=== PATIENT | female | born 1995 | race Caucasian/White ===

== ENCOUNTER 2016-10-22 05:17 | Inpatient (IN) | payer MEDICAID ==
[~2016-10-22] VITALS: Ht 154.9 cm; Wt 74.4 kg
[2016-10-22 05:17] VITALS: BP_SYST 122
[2016-10-22] MEDS ORDERED: NACL 0.9% 1,000 ML IV ONE ×2 (05:26→09:15)
[2016-10-22] MEDS ORDERED: FOLIC ACID 1 MG, THIAMINE HCL 100 MG, MAGNESIUM SULFATE 1 GM, MVI 10 ML in NACL 0.9% 1,... IV ONE (05:30)
[2016-10-22 05:51] LABS: BASOPHILS % (AUTO) 0.6 % (0.0-2.0); EOSINOPHILS # (AUTO) 0.1 K/uL (0.0-0.4); EOSINOPHILS % (AUTO) 1.4 % (0.0-4.0); HEMATOCRIT 38.6 % (36-48); LYMPHOCYTES % (AUTO) 31.5 % (20.5-51.5); MEAN CORPUSCULAR HEMOGLOBIN 30 pg (27-31); MEAN CORPUSCULAR HGB CONC 34 % (32-36); MEAN CORPUSCULAR VOLUME 89 fL (79.0-98.0); MONOCYTES # (AUTO) 0.4 K/uL (0.0-1.0); MONOCYTES % (AUTO) 6.6 % (1.7-9.3); NEUTROPHILS # (AUTO) 3.9 K/uL (1.8-7.7); NEUTROPHILS % (AUTO) 59.9 % (40.0-70.0); PLATELET COUNT (AUTO) 206 K/uL (130-430); RED BLOOD CELL COUNT(AUTO) 4.32 MIL/uL (4.2-6.2); WHITE BLOOD COUNT (AUTO) 6.4 K/uL (4.5-11.0)
[2016-10-22 06:00] LABS: CALCIUM 7.7 mg/dL (8.4-11.0); CREATININE 0.8 mg/dL (0.55-1.30); POTASSIUM 3.2 mmol/L (3.5-5.1)
[2016-10-22 06:04] LABS: ALBUMIN 3.4 g/dL (3.4-4.8); TOTAL BILIRUBIN 0.2 mg/dL (0.0-1.0)
[2016-10-22] MEDS ORDERED: MAGNESIUM SULFATE 1 GM/2 ML VIAL ONE (06:08)
[2016-10-22] MEDS ORDERED: FOLIC ACID 5 MG/ML VIAL IV ONE (06:08)
[2016-10-22] MEDS ORDERED: MVI 10 ML VIAL IV ONE (06:08)
[2016-10-22] MEDS ORDERED: THIAMINE HCL 100 MG/ML VIAL ONE (06:08)
[2016-10-22 06:15] LABS: INR 0.9 (0.8-1.2); PROTHROMBIN TIME 9.9 SECS (9.5-12.5)
[2016-10-22] MEDS ORDERED: LORazepam 2 MG/ML VIAL IVP ONE (07:00)
[2016-10-22] MEDS ORDERED: LORazepam 2 MG/ML VIAL (FOR ER USE) ONE (07:15)
[2016-10-22 07:30] LABS: BILIRUBIN,URINE NEGATIVE (NEGATIVE); BLOOD, URINE 2+ (NEGATIVE); CLARITY/URINE CLEAR (CLEAR); COLOR,URINE YELLOW (YELLOW); GLUCOSE,URINE NEGATIVE (NEGATIVE); KETONES,URINE NEGATIVE (NEGATIVE); LEUKOCYTE ESTERASE ,URINE NEGATIVE (NEGATIVE); NITRITE, URINE NEGATIVE (NEGATIVE); PH,URINE 5.5 (5.0-8.0); PROTEIN URINE NEGATIVE (NEGATIVE); UROBILINOGEN,URINE 0.2 (0.2-1.0)
[2016-10-22 07:43] LABS: WBC,URINE 0-3 /HPF (0-3)
[2016-10-22 07:44] LABS: BACTERIA,URINE RARE /HPF (None Seen)
[2016-10-22 08:04] LABS: ACETAMINOPHEN < 1 ug/mL (1-30)
[2016-10-22 08:39] LABS: BARBITURATE, URINE NEGATIVE (NEG <=200); BENZODIAZEPINE, URINE POSITIVE (NEG <=150); COCAINE, URINE NEGATIVE (NEG <=150); METHAMPHETAMINES SCREEN,URINE NEGATIVE (NEG <=500); OPIATE, URINE NEGATIVE (NEG <=100); PHENCYCLIDINE SCREEN,URINE NEGATIVE (NEG <=25); URINE AMPHETAMINE NEGATIVE (NEG <=500); URINE METHADONE NEGATIVE (NEG <=200)
[2016-10-22 08:40] LABS: CANNABINOID, URINE POSITIVE (NEG <=50); UR TRICYCLIC ANTIDEPRESSANTS NEGATIVE (NEG <=300); URINE OXYCODONE SCREEN NEGATIVE (NEG <=100); URINE PROPOXYPHENE SCREEN NEGATIVE (NEG <=300)
[2016-10-22] MEDS ORDERED: LORazepam 2 MG/ML VIAL IVP PRN (09:00)
[2016-10-22 09:48] VITALS: BP_SYST 102
[2016-10-22] MEDS ORDERED: POTASSIUM CHLORIDE 20 MEQ TAB.PRT.SR PO ONE (10:15)
[2016-10-22 11:55] VITALS: BP_SYST 106
[2016-10-22] MEDS ORDERED: LORazepam 2 MG/ML VIAL ONE (11:59)
[2016-10-22] MEDS: D5LR 1,000 ML IV SCH (12:00)
[2016-10-22 12:52] VITALS: BP_SYST 95
[2016-10-22 16:20] VITALS: BP_SYST 103
[2016-10-22 20:15] VITALS: BP_SYST 110
[2016-10-23 00:35] VITALS: BP_SYST 107
[2016-10-23] MEDS: D5LR 1,000 ML IV SCH (00:42)
[2016-10-23 04:55] VITALS: BP_SYST 92
[2016-10-23 07:17] LABS: BASOPHILS # (AUTO) 0.1 K/uL (0.0-0.2); BASOPHILS % (AUTO) 0.9 % (0.0-2.0); EOSINOPHILS # (AUTO) 0.2 K/uL (0.0-0.4); EOSINOPHILS % (AUTO) 2.4 % (0.0-4.0); HEMATOCRIT 39.3 % (36-48); HEMOGLOBIN 13.3 g/dL (12.0-16.0); LYMPHOCYTES # (AUTO) 2.8 K/uL (1.0-5.5); LYMPHOCYTES % (AUTO) 45.4 % (20.5-51.5); MEAN CORPUSCULAR HEMOGLOBIN 30 pg (27-31); MEAN CORPUSCULAR HGB CONC 34 % (32-36); MEAN CORPUSCULAR VOLUME 89 fL (79.0-98.0); MONOCYTES # (AUTO) 0.4 K/uL (0.0-1.0); NEUTROPHILS # (AUTO) 2.8 K/uL (1.8-7.7); NEUTROPHILS % (AUTO) 44.3 % (40.0-70.0); PLATELET COUNT (AUTO) 218 K/uL (130-430); RED CELL DISTRIBUTION WIDTH 11.8 % (9.0-15.0); WHITE BLOOD COUNT (AUTO) 6.3 K/uL (4.5-11.0)
[2016-10-23 07:32] LABS: ALBUMIN 2.9 g/dL (3.4-4.8); CALCIUM 8.1 mg/dL (8.4-11.0); CREATININE 0.77 mg/dL (0.55-1.30); POTASSIUM 4.2 mmol/L (3.5-5.1); TOTAL BILIRUBIN 0.6 mg/dL (0.0-1.0)
[2016-10-23 08:00] VITALS: BP_SYST 98
[2016-10-23] MEDS ORDERED: IBUPROFEN 400 MG TABLET PO SCH (08:45)
[2016-10-23 12:00] VITALS: BP_SYST 120
[2016-10-23 13:20] VITALS: BP_SYST 120
== END 2016-10-23 13:53 | disposition home or self-care (01) | DRG 812 ==
LOC: SED 05:17 → STU 08:49
PROVIDERS: ADMIT Internal Medicine; ATTEND Internal Medicine
DX: T42.4X1A Poisoning by benzodiazepines, accidental (unintentional), initial encounter (principal); G92 Toxic encephalopathy; E87.6 Hypokalemia; F10.10 Alcohol abuse, uncomplicated; Y90.6 Blood alcohol level of 120-199 mg/100 ml; F19.10 Other psychoactive substance abuse, uncomplicated; Z88.2 Allergy status to sulfonamides; Y92.89 Other specified places as the place of occurrence of the external cause
CPT/HCPCS: 36415; 36600; 70450-TC; 80053; 80307; 81000-TC; 82150-TC; 82803-TC; 83690-TC; 84703; 85025; 85610-TC; 85730-TC; 93005; 95816; 96365; 96375; 99285; G0480; G0481; G0482; J2060; J3411; J3475; J3490; J7030; J7040; J7120

== ENCOUNTER 2017-03-07 03:08 | Emergency (ER) | payer SELFPAY ==
[~2017-03-07] VITALS: Ht 157.5 cm; Wt 68.0 kg
[2017-03-07 03:08] VITALS: BP_SYST 150
--- NOTE | 2017-03-07 03:08 | NUR ---
Patient to ER bed 1 to gown for evaluation. Side rails up.
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
--- NOTE | 2017-03-07 03:10 | NUR ---
ER at bedside examining patient.
[2017-03-07 03:33] LABS: BILIRUBIN,URINE 1+ (NEGATIVE); BLOOD, URINE NEGATIVE (NEGATIVE); CLARITY/URINE CLEAR (CLEAR); COLOR,URINE YELLOW (YELLOW); GLUCOSE,URINE NEGATIVE (NEGATIVE); KETONES,URINE TRACE (NEGATIVE); LEUKOCYTE ESTERASE ,URINE NEGATIVE (NEGATIVE); NITRITE, URINE NEGATIVE (NEGATIVE); PH,URINE 5.5 (5.0-8.0); PROTEIN URINE NEGATIVE (NEGATIVE)
--- NOTE | 2017-03-07 03:40 | NUR ---
# 18 gauge angiocath placed to RAC. Use of asceptic technique. Opsite placed over site. Blood return noted. Blood for lab drawn from site. Flushed with 10 cc of normal saline. No evidence of infiltration noted. Patient tolerated well.
[2017-03-07 03:43] LABS: BARBITURATE, URINE NEGATIVE (NEG <=200); BENZODIAZEPINE, URINE POSITIVE (NEG <=150); CANNABINOID, URINE POSITIVE (NEG <=50); COCAINE, URINE POSITIVE (NEG <=150); METHAMPHETAMINES SCREEN,URINE POSITIVE (NEG <=500); OPIATE, URINE NEGATIVE (NEG <=100); PHENCYCLIDINE SCREEN,URINE NEGATIVE (NEG <=25); UR TRICYCLIC ANTIDEPRESSANTS NEGATIVE (NEG <=300); URINE AMPHETAMINE POSITIVE (NEG <=500); URINE METHADONE NEGATIVE (NEG <=200); URINE OXYCODONE SCREEN NEGATIVE (NEG <=100); URINE PROPOXYPHENE SCREEN NEGATIVE (NEG <=300)
[2017-03-07 03:53] LABS: BASOPHILS # (AUTO) 0.2 K/uL (0.0-0.2); BASOPHILS % (AUTO) 2.3 % (0.0-2.0); EOSINOPHILS # (AUTO) 0.2 K/uL (0.0-0.4); EOSINOPHILS % (AUTO) 2.7 % (0.0-4.0); HEMOGLOBIN 13.8 g/dL (12.0-16.0); LYMPHOCYTES # (AUTO) 2.5 K/uL (1.0-5.5); LYMPHOCYTES % (AUTO) 33.9 % (20.5-51.5); MEAN CORPUSCULAR HEMOGLOBIN 30 pg (27-31); MEAN CORPUSCULAR HGB CONC 34 % (32-36); MEAN CORPUSCULAR VOLUME 88 fL (79.0-98.0); MONOCYTES # (AUTO) 0.5 K/uL (0.0-1.0); MONOCYTES % (AUTO) 6.4 % (1.7-9.3); NEUTROPHILS # (AUTO) 3.9 K/uL (1.8-7.7); NEUTROPHILS % (AUTO) 54.7 % (40.0-70.0); PLATELET COUNT (AUTO) 265 K/uL (130-430); RED BLOOD CELL COUNT(AUTO) 4.65 MIL/uL (4.2-6.2); RED CELL DISTRIBUTION WIDTH 13.3 % (9.0-15.0); WHITE BLOOD COUNT (AUTO) 7.3 K/uL (4.5-11.0)
[2017-03-07] MEDS: KETOROLAC TROMETHAMINE 30 MG VIAL IVP ONE (03:55)
[2017-03-07 04:07] LABS: ANION GAP 3 (5-15); CALCIUM 9.2 mg/dL (8.4-11.0); CHLORIDE 107 mmol/L (98-107); CREATININE 0.75 mg/dL (0.55-1.30); GLUCOSE 90 mg/dL (70-99); POTASSIUM 3.4 mmol/L (3.5-5.1); SODIUM SERUM 135 mmol/L (136-145); UREA NITROGEN, BLOOD 15 mg/dL (8-21)
[2017-03-07 04:09] LABS: GFR AFRICAN AMERICAN 127 mL/min (>90)
[2017-03-07 04:12] LABS: ALANINE AMINOTRANSFERASE 21 U/L (12-78); ALBUMIN 4.2 g/dL (3.4-4.8); ASPARTATE AMINOTRANSFERASE 24 U/L (10-37); TOTAL BILIRUBIN 0.7 mg/dL (0.0-1.0)
[2017-03-07 04:13] LABS: ACETAMINOPHEN < 1 ug/mL (1-30); ALCOHOL, BLOOD < 3 mg/dL (<10)
[2017-03-07] MEDS: DIPH-TET-PERTUS Vaccine 0.5 ML VIAL (ADACEL) I.M. ONE (04:18)
[2017-03-07] MEDS: NACL 0.9% 1,000 ML IV ONE ×2 (04:19→04:30)
--- NOTE | 2017-03-07 04:50 | NUR ---
IVF infusing with no s/s of infiltration at this time. Will cont to monitor.
[2017-03-07 05:02] LABS: CKMB RELATIVE INDEX 1.2 (0.0-2.9)
--- NOTE | 2017-03-07 05:50 | NUR ---
Per patient, she takes no home meds.
--- NOTE | 2017-03-07 05:51 | NUR ---
Per patient, code status is full code.
[2017-03-07] MEDS ORDERED: BACITRACIN 1 GM OINT TP ONE (05:59)
[2017-03-07] MEDS: BACITRACIN 1 GM OINT TP ONE (06:00)
[2017-03-07 06:55] VITALS: BP_SYST 113
--- NOTE | 2017-03-07 06:55 | NUR ---
Patient given written and verbal discharge instructions and verbalizes understanding. ER MD discussed with patient the results and treatment provided. Patient in stable condition. ID arm band removed. IV catheter removed intact and dressing applied, no active bleeding. Rx of Motrin given. Patient educated on pain management and to follow up with PMD. Pain Scale 2/10 tolerable to patient. Opportunity for questions provided and answered.
== END 2017-03-07 06:55 | disposition home or self-care (01) ==
LOC: SED 03:08
DX: S41.112A Laceration without foreign body of left upper arm, initial encounter (principal); S20.319A Abrasion of unspecified front wall of thorax, initial encounter; F19.10 Other psychoactive substance abuse, uncomplicated; F17.200 Nicotine dependence, unspecified, uncomplicated; R51 Headache; Z88.2 Allergy status to sulfonamides; V49.9XXA Car occupant (driver) (passenger) injured in unspecified traffic accident, initial encounter; Y93.89 Activity, other specified; Y92.410 Unspecified street and highway as the place of occurrence of the external cause; Y99.8 Other external cause status
CPT/HCPCS: 36415; 70450; 71250; 72125; 73030; 73060; 73080; 73110; 74176; 80053; 80307; 81003; 81025; 82550; 82553; 85025; 90471; 90715; 93005; 96361; 96374; 99291; G0480; G0481; G0482; J1885; J7030

== ENCOUNTER 2018-08-13 00:40 | Emergency (ER) | payer SELFPAY ==
[~2018-08-13] VITALS: Ht 152.4 cm; Wt 72.6 kg
[2018-08-13 00:56] VITALS: BP_SYST 135
--- NOTE | 2018-08-13 00:56 | NUR ---
Patient to ER bed 6 for evaluation. Side rails up. Report given to Princess.
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
--- NOTE | 2018-08-13 01:20 | NUR ---
ER at bedside examining patient.
--- NOTE | 2018-08-13 01:45 | NUR ---
Lab at bedside to obtain specimens. Patient able to ambulate without difficulty with slow, steady gait to bathroom and provided urine sample which was sent to lab. Awaiting results and dispo.
[2018-08-13 01:56] LABS: BASOPHILS % (AUTO) 0.6 % (0.0-2.0); EOSINOPHILS # (AUTO) 0.2 K/uL (0.0-0.4); EOSINOPHILS % (AUTO) 2.3 % (0.0-4.0); HEMATOCRIT 38.1 % (36-48); HEMOGLOBIN 12.8 g/dL (12.0-16.0); LYMPHOCYTES # (AUTO) 1.5 K/uL (1.0-5.5); LYMPHOCYTES % (AUTO) 21.6 % (20.5-51.5); MEAN CORPUSCULAR HEMOGLOBIN 29 pg (27-31); MEAN CORPUSCULAR HGB CONC 34 % (32-36); MEAN CORPUSCULAR VOLUME 87 fL (79.0-98.0); MONOCYTES # (AUTO) 0.4 K/uL (0.0-1.0); MONOCYTES % (AUTO) 6.2 % (1.7-9.3); NEUTROPHILS # (AUTO) 4.8 K/uL (1.8-7.7); NEUTROPHILS % (AUTO) 69.3 % (40.0-70.0); PLATELET COUNT (AUTO) 236 K/uL (130-430); RED BLOOD CELL COUNT(AUTO) 4.39 MIL/uL (4.2-6.2); RED CELL DISTRIBUTION WIDTH 13.9 % (9.0-15.0); WHITE BLOOD COUNT (AUTO) 6.9 K/uL (4.8-10.8)
[2018-08-13 02:00] LABS: BILIRUBIN,URINE NEGATIVE (NEGATIVE); BLOOD, URINE NEGATIVE (NEGATIVE); CLARITY/URINE CLEAR (CLEAR); COLOR,URINE YELLOW (YELLOW); GLUCOSE,URINE NEGATIVE (NEGATIVE); KETONES,URINE NEGATIVE (NEGATIVE); LEUKOCYTE ESTERASE ,URINE 2+ (NEGATIVE); NITRITE, URINE NEGATIVE (NEGATIVE); PH,URINE 6.5 (5.0-8.0); PROTEIN URINE TRACE (NEGATIVE)
[2018-08-13 02:09] LABS: ANION GAP 5 (5-15); BACTERIA,URINE MODERATE /HPF (None Seen); CALCIUM 8.9 mg/dL (8.4-11.0); CHLORIDE 104 mmol/L (98-107); CREATININE 0.68 mg/dL (0.55-1.30); GLUCOSE 98 mg/dL (70-99); POTASSIUM 4.4 mmol/L (3.5-5.1); RBC,URINE 0-3 /HPF (0-3); SODIUM SERUM 135 mmol/L (136-145); UREA NITROGEN, BLOOD 12 mg/dL (8-21); WBC,URINE 20-50 /HPF (0-3)
[2018-08-13 02:15] LABS: ALANINE AMINOTRANSFERASE 26 U/L (12-78); ALBUMIN 3.5 g/dL (3.4-4.8); ASPARTATE AMINOTRANSFERASE 19 U/L (10-37); TOTAL BILIRUBIN 0.4 mg/dL (0.0-1.0)
[2018-08-13 02:19] LABS: GFR AFRICAN AMERICAN 139 mL/min (>90)
[2018-08-13 02:20] LABS: ALCOHOL, BLOOD < 3 mg/dL (<10); CANNABINOID, URINE POSITIVE (NEG <=50)
[2018-08-13 02:21] LABS: BARBITURATE, URINE NEGATIVE (NEG <=200); BENZODIAZEPINE, URINE POSITIVE (NEG <=150); COCAINE, URINE NEGATIVE (NEG <=150); METHAMPHETAMINES SCREEN,URINE NEGATIVE (NEG <=500); OPIATE, URINE NEGATIVE (NEG <=100); PHENCYCLIDINE SCREEN,URINE NEGATIVE (NEG <=25); UR TRICYCLIC ANTIDEPRESSANTS NEGATIVE (NEG <=300); URINE AMPHETAMINE NEGATIVE (NEG <=500); URINE METHADONE NEGATIVE (NEG <=200); URINE OXYCODONE SCREEN NEGATIVE (NEG <=100); URINE PROPOXYPHENE SCREEN NEGATIVE (NEG <=300)
[2018-08-13 02:27] LABS: INR 0.9 (0.8-1.2); PROTHROMBIN TIME 9.5 SECS (9.5-12.5)
--- NOTE | 2018-08-13 03:47 | NUR ---
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 While attempting to discharge, pt is unable to stay awake. She is arousable, however could be a possible side effect of the Xanax.
--- NOTE | 2018-08-13 04:37 | NUR ---
Attempted to call pts girlfriend again, no answer.
--- NOTE | 2018-08-13 04:41 | NUR ---
Was able to reach pts sister Andressa. 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 Pt made aware.
--- NOTE | 2018-08-13 05:56 | NUR ---
Pt resting comfortably in bed ,no signs of acute distress. will cont. to monitor.
--- NOTE | 2018-08-13 06:30 | NUR ---
Called pts girlfriend Ct, phone went straight to voicemail. -
[2018-08-13 06:42] VITALS: BP_SYST 124
--- NOTE | 2018-08-13 06:42 | NUR ---
Patient given written and verbal discharge instructions and verbalizes understanding. ER MD discussed with patient the results and treatment provided. Patient in stable condition. ID arm band removed. Rx of Macrobid given. Patient educated on pain management and to follow up with PMD. Pain Scale 0/10. Opportunity for questions provided and answered. Medication side effect fact sheet provided.
== END 2018-08-13 06:42 | disposition home or self-care (01) ==
LOC: SED 00:40
DX: R56.9 Unspecified convulsions (principal); N39.0 Urinary tract infection, site not specified
CPT/HCPCS: 36415; 80053; 80307; 81000; 81025; 85025; 85610; 85730; 87086; 93005; 99284; G0482